=== PATIENT | male | born 1985 | race Caucasian/White ===

== ENCOUNTER 2019-08-16 19:22 | Emergency (ER) | payer OTHER ==
--- NOTE | 2019-08-16 19:31 | NUR ---
PATIENT WALKED INTO ER WITH STEADY GAIT,BIB [facility] FOR POSSIBLE OD. PATIENT REFUSED TO BE TRAIGED OR TO BE SEEN BY ERMD. PATIENT A/OX3,SPEAKING WITH CLEAR SPEECH . WALKED OUT OF ER WITH NO DISTRESS NOTED.
== END 2019-08-16 19:34 | disposition left against medical advice (07) ==
LOC: ER 19:29
DX: Z53.21 Procedure and treatment not carried out due to patient leaving prior to being seen by health care provider (principal)